=== PATIENT | female | born 1990 | race Caucasian/White ===

== ENCOUNTER → 2020-06-18 | Outpatient (REF) | payer OTHER ==
[2020-06-18 15:22] LABS: BASO # 0.1 10^3/uL (0.0-0.2); BASO % 0.7 % (0.0-1.0); EOS # 0.1 10^3/uL (0.0-0.5); EOS % 1.2 % (0.0-3.0); HEMATOCRIT 46.7 % (36.0-47.0); HEMOGLOBIN 15.1 g/dl (12.0-15.5); LYMPH # 3.1 10^3/uL (1.5-5.0); LYMPH % 33.7 % (24.0-44.0); MEAN CORPUSCULAR HEMOGLOBIN 31.5 pg (27.0-33.0); MEAN CORPUSCULAR HGB CONC 32.3 g/dl (32.0-36.5); MEAN CORPUSCULAR VOLUME 97.3 fl (80.0-96.0); MONO # 0.6 10^3/uL (0.0-0.8); MONO % 6.4 % (2.0-8.0); NEUTROPHILS # 5.2 10^3/uL (1.5-8.5); NEUTROPHILS % 57.8 % (36.0-66.0); PLATELET COUNT, AUTOMATED 343 10^3/uL (150-450); WHITE BLOOD COUNT 9.1 10^3/uL (4.0-10.0)
[2020-06-18 16:08] LABS: FREE T4 0.7 NG/DL (0.76-1.46); THYROID STIMULATING HORMONE 87.4 uIU/ML (0.358-3.740); TOTAL 25(OH) VITAMIN D 11.1 NG/ML (30.0-100.0)
== END ==
LOC: M PLALAB 14:01
PROVIDERS: ATTEND Nurse Practitioner Family
DX: M32.9 Systemic lupus erythematosus, unspecified (principal); E03.9 Hypothyroidism, unspecified; E55.9 Vitamin D deficiency, unspecified

== ENCOUNTER → 2020-06-18 | Outpatient (REF) | payer OTHER | LOC: M SFHCWAGY 09:23 | PROVIDERS: ATTEND Advanced Practice Midwife | DX: Z12.4 Encounter for screening for malignant neoplasm of cervix (principal) ==

== ENCOUNTER → 2020-09-10 | Outpatient (REF) | payer OTHER | LOC: M SFHCLERA 15:43 | PROVIDERS: ATTEND Nurse Practitioner Family | DX: N94.9 Unspecified condition associated with female genital organs and menstrual cycle (principal) ==

== ENCOUNTER → 2022-01-31 | Outpatient (REF) | payer OTHER | LOC: M SFHCWAGY 17:22 | PROVIDERS: ATTEND Advanced Practice Midwife | DX: Z12.4 Encounter for screening for malignant neoplasm of cervix (principal) | CPT/HCPCS: 87624; G0123 ==

== ENCOUNTER → 2022-05-09 | Outpatient (CLI) | payer OTHER ==
[2022-05-09 16:01] LABS: ALKALINE PHOSPHATASE 60 U/L (46-116); ALT/SGPT 27 U/L (7.0-40); AST/SGOT 22 U/L (<34); BILIRUBIN,TOTAL 1.3 MG/DL (0.3-1.2); BLOOD UREA NITROGEN 13 MG/DL (9-23); CALCIUM LEVEL 9.3 MG/DL (8.5-10.1); CARBON DIOXIDE LEVEL 27 MMOL/L (20-31); CHLORIDE LEVEL 102 MMOL/L (98-107); CHOLESTEROL LEVEL 191 MG/DL (<200); CHOLESTEROL RISK RATIO 3.81 (<5); GLOMERULAR FILTRATION RATE > 60.0 (>60); GLUCOSE, FASTING 114 MG/DL (60-100); HDL CHOLESTEROL 50.1 MG/DL (>40); LDL CHOLESTEROL 108.1 MG/DL (<100); NON-HDL-C 141 MG/DL; POTASSIUM SERUM 4.3 MMOL/L (3.5-5.1); RHEUMATOID FACTOR QUANT < 3.5 IU/ML (<14); SODIUM LEVEL 138 MMOL/L (136-145); TOTAL PROTEIN 7.6 G/DL (5.7-8.2); TRIGLYCERIDES LEVEL 164 MG/DL (<150)
[2022-05-09 16:04] LABS: FREE T4 0.97 NG/DL (0.89-1.76); THYROID STIMULATING HORMONE 43.172 uIU/ML (0.55-4.78)
[2022-05-09 16:06] LABS: TOTAL 25(OH) VITAMIN D 12.3 NG/ML (20.0-100.0)
[2022-05-09 16:07] LABS: VITAMIN B12 LEVEL 339 PG/ML (211-911)
[2022-05-09 16:10] LABS: FOLATE 5.96 NG/ML (>5.4); URIC ACID 4.9 MG/DL (3.1-7.8)
[2022-05-09 16:11] LABS: BASO # 0.1 10^3/uL (0.0-0.2); BASO % 0.7 % (0.0-1.0); EOS # 0.1 10^3/uL (0.0-0.5); EOS % 1.3 % (0.0-3.0); HEMATOCRIT 46.6 % (36.0-47.0); HEMOGLOBIN 15.3 g/dl (12.0-15.5); LYMPH # 2.6 10^3/uL (1.5-5.0); LYMPH % 28.1 % (24.0-44.0); MEAN CORPUSCULAR HEMOGLOBIN 31.9 pg (27.0-33.0); MEAN CORPUSCULAR HGB CONC 32.8 g/dl (32.0-36.5); MEAN CORPUSCULAR VOLUME 97.1 fl (80.0-96.0); MONO # 0.5 10^3/uL (0.0-0.8); MONO % 5.1 % (2.0-8.0); NEUTROPHILS # 5.9 10^3/uL (1.5-8.5); NEUTROPHILS % 64.6 % (36.0-66.0); PLATELET COUNT, AUTOMATED 348 10^3/uL (150-450); WHITE BLOOD COUNT 9.1 10^3/uL (4.0-10.0)
[2022-05-09 16:23] LABS: ERYTHROCYTE SEDIMENTATION RATE 29 mm/hr (0-20)
[2022-05-09 19:32] LABS: APPEARANCE, URINE MANUAL CLEAR (CLEAR); COLOR, URINE MANUAL YELLOW (YELLOW)
[2022-05-09 19:33] LABS: BILIRUBIN, URINE MANUAL NEGATIVE (NEGATIVE); BLOOD URINE MANUAL NEGATIVE (NEGATIVE); GLUCOSE, URINE (UA) MANUAL NEGATIVE (NEGATIVE); KETONE, URINE MANUAL NEGATIVE (NEGATIVE); LEUKOCYTE ESTERASE, URINE MAN NEGATIVE (NEGATIVE); NITRITE, URINE MANUAL NEGATIVE (NEGATIVE); PH,URINE MAN 5.5 UNITS (5.0 - 7.0); PROTEIN, URINE MANUAL NEGATIVE (NEGATIVE); UROBILINOGEN, URINE MANUAL NORMAL (NORMAL)
== END ==
LOC: M PLALAB 13:23
PROVIDERS: ATTEND Physician Assistant
DX: E03.9 Hypothyroidism, unspecified (principal)

== ENCOUNTER → 2022-08-21 | Outpatient (CLI) | payer OTHER ==
[2022-08-21 14:07] LABS: FREE T4 0.99 NG/DL (0.89-1.76)
[2022-08-21 14:08] LABS: THYROID STIMULATING HORMONE 16.113 uIU/ML (0.55-4.78)
== END ==
LOC: M PLALAB 10:18
PROVIDERS: ATTEND Physician Assistant
DX: E03.9 Hypothyroidism, unspecified (principal)